=== PATIENT | female | born 1995 | race Caucasian/White ===

== ENCOUNTER 2018-05-27 17:15 | Emergency (ER) | payer SELFPAY ==
[~2018-05-27] VITALS: Ht 160 cm; Wt 89.1 kg
[2018-05-27 17:16] VITALS: TEMP 98
[2018-05-27] MEDS ORDERED: BIRTH CONTROL PO (17:57)
[2018-05-27 18:16] LABS: BASO # 0.1 (0.0-0.2); BASO % 0.7 % (0.0-2.0); EOS # 0.1 (0.0-0.7); EOS % 0.7 % (0-4.0); GRAN # 5.2 (1.4-6.5); GRAN % 68.2 % (42.2-75.2); HEMATOCRIT 40.3 % (37.0-47.0); HEMOGLOBIN 13.7 g/dl (12.5-16.0); LYMPH # 1.8 (1.2-3.4); LYMPH % 24.1 % (20.0-51.0); MEAN CELL VOLUME 91 fl (80.0-100.0); MEAN CORPUSCULAR HEMOGLOBIN 31 pg (27.0-31.0); MEAN CORPUSCULAR HGB CONC 34 g/dl (33.0-37.0); MEAN PLATELET VOLUME 9.3 fl (7.4-10.4); MONO # 0.4 (0.1-0.6); MONO % 5.5 % (1.7-9.3); PLATELET COUNT 423 K/mm3 (130-400); RED BLOOD COUNT 4.41 M/mm3 (4.10-5.30); REDCELL DISTRIBUTION WIDTH-CV 12.2 % (11.5-14.5)
[2018-05-27 18:28] LABS: ALANINE AMINOTRANSFERASE 18 U/L (9-52); ALBUMIN 4.1 gm/dL (3.5-5.0); ALKALINE PHOSPHATASE 62 U/L (50-136); ANION GAP 9 mmol/L (7-16); AST,SGOT 23 U/L (15-37); BILIRUBIN,TOTAL 0.3 mg/dL (0.0-1.0); BLOOD UREA NITROGEN 12 mg/dL (7-17); CARBON DIOXIDE 24 mmol/L (22-30); CHLORIDE 107 mmol/L (98-107); CREATININE, serum 0.71 mg/dL (0.52-1.25); GLUCOSE 135 mg/dL (74-106); POTASSIUM 4.1 mmol/L (3.4-5.0); SODIUM 140 mmol/L (137-145); TOTAL PROTEIN 7.2 gm/dL (6.4-8.2)
[2018-05-27 18:39] LABS: TROPONIN-I < 0.012 ng/mL (0.000-0.035)
[2018-05-27] MEDS ORDERED: TOPROL XL 25MG25 MG PO (19:21)
[2018-05-27 19:42] VITALS: BP 126/78; PULSE 113
== END 2018-05-27 19:53 | disposition home or self-care (01) ==
LOC: COL.ER 17:15
PROVIDERS: Physician Assistant
DX: R00.2 Palpitations (principal); Z86.79 Personal history of other diseases of the circulatory system
CPT/HCPCS: J2060; J7030

== ENCOUNTER 2018-11-07 23:21 | Emergency (ER) | payer SELFPAY ==
[~2018-11-07] VITALS: Ht 160 cm; Wt 86.4 kg
[~2018-11-07 23:21] MED LIST: BIRTH CONTROL PO; TOPROL XL 25MG25 MG PO
[2018-11-07 23:26] VITALS: BP 155/63; TEMP 98
[2018-11-07] MEDS ORDERED: TOPROL XL 50MG50 MG PO (23:33)
[2018-11-08 00:10] VITALS: PULSE 101
== END 2018-11-08 00:10 | disposition home or self-care (01) ==
LOC: COL.ER 23:21
DX: R00.0 Tachycardia, unspecified (principal); I10 Essential (primary) hypertension; F41.9 Anxiety disorder, unspecified; Z76.0 Encounter for issue of repeat prescription

== ENCOUNTER → 2018-11-10 | Outpatient (CLI) | payer OTHER ==
[~2018-11-10] MED LIST changes: +TOPROL XL 50MG50 MG PO
== END ==
LOC: COL.RAD 07:58
DX: S62.024D Nondisplaced fracture of middle third of navicular [scaphoid] bone of right wrist, subsequent encounter for fracture with routine healing (principal)

== ENCOUNTER 2019-04-11 10:00 | Outpatient (RCR) | payer OTHER | END 2019-04-11 16:18 | disposition home or self-care (01) | LOC: WSOT 10:00 | DX: M79.644 Pain in right finger(s) (principal) ==

== ENCOUNTER 2019-05-14 17:17 | Emergency (ER) | payer SELFPAY ==
[~2019-05-14] VITALS: Ht 160 cm; Wt 90.9 kg
[2019-05-14 17:19] VITALS: BP 167/95; TEMP 98
[2019-05-14 19:01] LABS: BASO # 0.1 (0.0-0.2); BASO % 0.9 % (0.0-2.0); EOS # 0.1 (0.0-0.7); EOS % 1.4 % (0-4.0); GRAN # 5.5 (1.4-6.5); HEMATOCRIT 44.1 % (37.0-47.0); HEMOGLOBIN 14.5 g/dl (12.5-16.0); LYMPH # 2.6 (1.2-3.4); LYMPH % 29.8 % (20.0-51.0); MEAN CELL VOLUME 93 fl (80.0-100.0); MEAN CORPUSCULAR HEMOGLOBIN 31 pg (27.0-31.0); MEAN CORPUSCULAR HGB CONC 33 g/dl (33.0-37.0); MEAN PLATELET VOLUME 9.9 fl (7.4-10.4); MONO # 0.5 (0.1-0.6); MONO % 5.3 % (1.7-9.3); PLATELET COUNT 369 K/mm3 (130-400); RED BLOOD COUNT 4.75 M/mm3 (4.10-5.30)
[2019-05-14 19:23] LABS: ALBUMIN 4.5 gm/dL (3.5-5.0); BILIRUBIN,TOTAL 0.5 mg/dL (0.0-1.0); C-REACTIVE PROTEIN 2.2 mg/dL (0.0-0.9); CALCIUM 9.4 mg/dL (8.4-10.2); CREATININE, serum 0.54 (0.52-1.25); POTASSIUM 3.6 mmol/L (3.4-5.0); TOTAL PROTEIN 8.2 gm/dL (6.4-8.2)
[2019-05-14 20:00] VITALS: PULSE 98
== END 2019-05-14 20:00 | disposition home or self-care (01) ==
LOC: COL.ER 17:17
PROVIDERS: Physician Assistant
DX: J11.1 Influenza due to unidentified influenza virus with other respiratory manifestations (principal)
CPT/HCPCS: J7030